=== PATIENT | male | born 1990 | race Caucasian/White ===

== ENCOUNTER → 2019-06-26 | Outpatient (CLI) | payer OTHER | LOC: M LABSMTC 13:28 | PROVIDERS: ATTEND Family Medicine | DX: Z11.59 Encounter for screening for other viral diseases (principal); Z20.828 Contact with and (suspected) exposure to other viral communicable diseases | CPT/HCPCS: C8903; U0003 ==

== ENCOUNTER → 2020-12-16 | Outpatient (CLI) | payer OTHER | LOC: M PLAIMG 10:29 | PROVIDERS: ATTEND Physician Assistant | DX: S39.012D Strain of muscle, fascia and tendon of lower back, subsequent encounter (principal); W18.30XD Fall on same level, unspecified, subsequent encounter; Y92.009 Unspecified place in unspecified non-institutional (private) residence as the place of occurrence of the external cause ==

== ENCOUNTER → 2021-03-09 | Outpatient (CLI) | payer OTHER ==
[2021-03-09 15:34] LABS: PLATELET COUNT, AUTOMATED 220 10^3/uL (150-450)
[2021-03-09 15:50] LABS: INR 1.04
[2021-03-09 15:51] LABS: PARTIAL THROMBOPLASTIN TIME 28.9 SECONDS (25.9-37.0)
== END ==
LOC: M PLALAB 13:58
PROVIDERS: ATTEND Orthopaedic Surgery
DX: M51.16 Intervertebral disc disorders with radiculopathy, lumbar region (principal)